=== PATIENT | female | born 1995 | race Caucasian/White ===

== ENCOUNTER 2017-01-16 12:44 | Emergency (ER) | payer MEDICAID ==
[~2017-01-16] VITALS: Ht 160 cm; Wt 72.9 kg
[2017-01-16] MEDS ORDERED: birth control PO (15:36)
[2017-01-16] MEDS ORDERED: ACETAMINOPHEN 500 MG TABLET ONE (15:45)
[2017-01-16] MEDS ORDERED: KETOROLAC 30 MG/1 ML ONE (15:45)
[2017-01-16] MEDS ORDERED: SODIUM CHLORIDE 0.9% 1,000ML IVBOLUS ONE ×2 (16:00→17:00)
[2017-01-16] MEDS ORDERED: KETOROLAC 30 MG/1 ML IVPush ONE (16:00)
[2017-01-16] MEDS ORDERED: ACETAMINOPHEN 500 MG TABLET PO ONE (16:00)
[2017-01-16 16:05] LABS: RAPID INFLUENZA A Negative (Negative); RAPID INFLUENZA B Negative (Negative)
[2017-01-16 17:18] LABS: HEMATOCRIT 38.9 % (34.6-47.8); HEMOGLOBIN 13.2 g/dL (11.7-16.4); WHITE BLOOD COUNT 14.1 x10^3/uL (4.5-13.2)
[2017-01-16 17:29] LABS: BLOOD UREA NITROGEN 7 mg/dL (7-18)
[2017-01-16 17:32] LABS: ASPARTATE AMINO TRANSFERASE 13 U/L (15-37)
[2017-01-16 18:17] VITALS: BP 106/70
== END 2017-01-16 18:17 | disposition home or self-care (01) ==
LOC: EDBD 12:44 → ED 16:40
DX: J02.8 Acute pharyngitis due to other specified organisms (principal); B97.89 Other viral agents as the cause of diseases classified elsewhere; M79.622 Pain in left upper arm; M79.621 Pain in right upper arm
CPT/HCPCS: 36415; 71010; 80053; 81003; 83605; 84145; 85025; 87040; 87081; 87400; 87880; 96361; 96374; 99284; J1885; J7030

== ENCOUNTER 2017-10-01 09:29 | Emergency (ER) | payer MEDICAID ==
[~2017-10-01] VITALS: Ht 160 cm; Wt 74.3 kg
[~2017-10-01 09:29] MED LIST: birth control PO
[2017-10-01 09:32] VITALS: BP 124/88
[2017-10-01] MEDS ORDERED: MAALOX/HYOSCYAMINE/LIDOCAINE 45 ML BTL ONE (10:58)
[2017-10-01] MEDS ORDERED: ONDANSETRON ODT 4 MG ONE (10:58)
[2017-10-01] MEDS ORDERED: ONDANSETRON ODT 4 MG PO ONE (11:00)
[2017-10-01] MEDS ORDERED: MAALOX/HYOSCYAMINE/LIDOCAINE 45 ML BTL PO ONE (11:00)
[2017-10-01 11:17] LABS: BASOPHILS % (AUTO) 0 % (0-1); EOSINOPHILS % (AUTO) 0 % (1-7); LYMPHOCYTES # (AUTO) 0.88 x10^3/uL (1-6.1); LYMPHOCYTES % (AUTO) 8 % (22-44); MD NO; MEAN CORPUSCULAR HEMOGLOBIN 29.4 pg (27.0-34.8); MEAN CORPUSCULAR HGB CONC 33.9 g/dL (32.4-35.8); MEAN CORPUSCULAR VOLUME 86.7 fL (80-100); MONOCYTES # (AUTO) 0.08 x10^3/uL (0-1.4); MONOCYTES % (AUTO) 1 % (2-9); NEUTROPHILS # (AUTO) 10.81 x10^3/uL (1.8-8.0); NEUTROPHILS % (AUTO) 92 % (42-75); PLATELET COUNT 343 x10^3/uL (130-400); RED BLOOD COUNT 5.06 x10^6/uL (3.82-5.3)
[2017-10-01] MEDS ORDERED: ONDANSETRON 2MG/ML, 2ML IVPush ONE (11:30)
[2017-10-01] MEDS ORDERED: morphine SULFATE 10 MG/ML, 1ML IVPush ONE (11:30)
[2017-10-01] MEDS ORDERED: FAMOTIDINE 20 MG/2 ML IVPush ONE (11:30)
[2017-10-01 11:31] LABS: ALANINE AMINOTRANSFERASE 86 U/L (12-78); ANION GAP 11 mmol/L (5-15); CALCIUM 9.2 mg/dL (8.5-10.1); CHLORIDE 108 mmol/L (98-107); CREATININE 0.81 mg/dL (0.55-1.02)
[2017-10-01 11:35] LABS: ALKALINE PHOSPHATASE 75 U/L (45-117); BILIRUBIN,TOTAL 0.3 mg/dL (0.2-1.0); TOTAL PROTEIN 8.4 g/dL (6.4-8.2)
[2017-10-01] MEDS ORDERED: MORPHINE SULFATE 4 MG/ML, 1ML ONE (11:39)
[2017-10-01] MEDS ORDERED: ONDANSETRON 2MG/ML, 2ML ONE (11:39)
[2017-10-01] MEDS ORDERED: FAMOTIDINE 20 MG/2 ML ONE (11:39)
== END 2017-10-01 13:18 | disposition home or self-care (01) ==
LOC: ED 11:35
DX: K29.00 Acute gastritis without bleeding (principal); K21.0 Gastro-esophageal reflux disease with esophagitis; R11.2 Nausea with vomiting, unspecified; R19.7 Diarrhea, unspecified
CPT/HCPCS: 36415; 76700; 80053; 83690; 84703; 85025; 86677; 96374; 96375; 99285; J2270; J2405; Q0162; S0028